=== PATIENT | female | born 1965 ===

== ENCOUNTER 2018-02-20 19:00 | Emergency (ER) | payer OTHER ==
[2018-02-20 19:22] VITALS: BP 114/66; PULSE 75; RESP 18; TEMP 98.2; O2SAT 97
--- NOTE | 2018-02-20 19:55 | ED PDOC ---
HPI: General Adult Time Seen by Provider: 02/20/18 19:53 Chief Complaint (Nursing): Bite Chief Complaint (Provider): bite History Per: Patient (52 y/o female h/o bronchitis here for evaluation of insect bite of right thigh noted after visit to [place]. Notes pruritis. Denies any fevers/chills.) Past Medical History Reviewed: Historical Data, Nursing Documentation, Vital Signs Vital Signs: Last Vital Signs Temp 98.2 F 02/20/18 19:18 Pulse 75 02/20/18 19:18 Resp 18 02/20/18 19:18 BP 114/66 02/20/18 19:18 Pulse Ox 97 02/20/18 19:58 - Medical History PMH: Anxiety, Asthma - Family History Family History: States: Unknown Family Hx - Home Medications Home Medications: Ambulatory Orders Medication Instructions Recorded Acetaminophen [Tylenol] 325 mg PO Q4 PRN #20 tab 07/28/14 Ibuprofen [Motrin Tab] 800 mg PO Q6H PRN #20 tab 02/21/15 traMADol [Ultram] 50 mg PO Q6H PRN #15 tab 02/21/15 Ibuprofen [Motrin] 600 mg PO Q6 PRN #20 tab 07/20/15 Doxycycline Monohydrate 100 mg PO BID #20 tablet 02/20/18 Hydrocortisone 1% Oint [Cortizone 0.5 gm TP BID #1 tube 02/20/18 1% Oint] Omeprazole Magnesium [Prilosec Otc] 20 mg PO DAILY #10 tablet. 02/20/18 - Allergies Allergies/Adverse Reactions: Allergies Allergy/AdvReac Type Severity Reaction Status Date / Time Penicillins Allergy RASH Verified 02/20/18 19:39 Review of Systems ROS Statement: Except As Marked, All Systems Reviewed And Found Negative Physical Exam - Reviewed Nursing Documentation Reviewed: Yes Vital Signs Reviewed: Yes - Physical Exam Appears: Positive for: Well, Non-toxic, No Acute Distress Head Exam: Positive for: ATRAUMATIC, NORMAL INSPECTION, NORMOCEPHALIC Skin: Positive for: Normal Color, Warm, Rash (8 cm region in diameter right lateral thigh proximal with ecchymosis 2.5 cm central and surrounding slightly flushed) Eye Exam: Positive for: EOMI, Normal appearance, PERRL ENT: Positive for: Normal ENT Inspection Neck: Positive for: Normal, Painless ROM Cardiovascular/Chest: Positive for: Regular Rate, Rhythm Respiratory: Positive for: CNT, Normal Breath Sounds Gastrointestinal/Abdominal: Positive for: Normal Exam, Soft Back: Positive for: Normal Inspection Extremity: Positive for: Normal ROM Neurologic/Psych: Positive for: Alert, Oriented - ECG O2 Sat by Pulse Oximetry: 97 - Progress ED Course And Treament: D/W DR. FISH. RASH APPEARS SLIGHTLY LIKE ERYTHEMA MIGRANS, WILL TREAT FOR LYME'S DISEASE . D/W PATIENT WHO WILL F/U WITH PMD FOR FURTHER EVALUATION. Disposition - Clinical Impression Clinical Impression: Insect bite - wound, Erythema migrans (Lyme disease) - Patient ED Disposition Is Patient to be Admitted: No - Disposition Disposition: Routine/Home Disposition Time: 19:55 Condition: FAIR Prescriptions: Doxycycline Monohydrate 100 mg PO BID #20 tablet Hydrocortisone 1% Oint [Cortizone 1% Oint] 0.5 gm TP BID #1 tube Omeprazole Magnesium [Prilosec Otc] 20 mg PO DAILY #10 tablet. Instructions: Lyme Disease (DC)
== END 2018-02-20 20:50 | disposition home or self-care (01) ==
LOC: H.ER 19:00
DX: S70.361A Insect bite (nonvenomous), right thigh, initial encounter (principal); W57.XXXA Bitten or stung by nonvenomous insect and other nonvenomous arthropods, initial encounter; Y92.89 Other specified places as the place of occurrence of the external cause; Z88.0 Allergy status to penicillin

== ENCOUNTER 2018-03-07 20:20 | Emergency (ER) | payer OTHER ==
[2018-03-07 21:19] VITALS: BP 105/73; PULSE 72; RESP 16; TEMP 98.3; O2SAT 96
--- NOTE | 2018-03-07 23:54 | ED PDOC ---
Upper Extremity Pain/Injury Time Seen by Provider: 03/07/18 22:22 Chief Complaint (Nursing): Finger,Hand,&Wrist Chief Complaint (Provider): Lef thumb pain x 3 months History Per: Patient History/Exam Limitations: no limitations Onset/Duration Of Symptoms: Days Current Symptoms Are (Timing): Still Present Quality: Dull Severity: Mild Additional Complaint(s): 52 yo female presents for evaluation of mild dull left thumb pain x 3 months. Pt states that sometimes when she bends her thumb it will get stuck. Pt states she also feels like her thumb is swollen. No trauma that patient can recall. Pain localized to left thumb Past Medical History Reviewed: Historical Data, Nursing Documentation, Vital Signs Vital Signs: Last Vital Signs Temp 98.3 F 03/07/18 21:18 Pulse 72 03/07/18 21:18 Resp 16 03/07/18 21:18 BP 105/73 03/07/18 21:18 Pulse Ox 96 03/07/18 21:18 - Medical History PMH: Anxiety, Asthma - Surgical History Surgical History: No Surg Hx - Family History Family History: States: Unknown Family Hx - Living Arrangements Living Arrangements: With Family - Social History Current smoker - smoking cessation education provided: No - Home Medications Home Medications: Ambulatory Orders Medication Instructions Recorded Acetaminophen [Tylenol] 325 mg PO Q4 PRN #20 tab 07/28/14 Ibuprofen [Motrin Tab] 800 mg PO Q6H PRN #20 tab 02/21/15 traMADol [Ultram] 50 mg PO Q6H PRN #15 tab 02/21/15 Ibuprofen [Motrin] 600 mg PO Q6 PRN #20 tab 07/20/15 Doxycycline Monohydrate 100 mg PO BID #20 tablet 02/20/18 Hydrocortisone 1% Oint [Cortizone 0.5 gm TP BID #1 tube 02/20/18 1% Oint] Omeprazole Magnesium [Prilosec Otc] 20 mg PO DAILY #10 tablet. 02/20/18 - Allergies Allergies/Adverse Reactions: Allergies Allergy/AdvReac Type Severity Reaction Status Date / Time Penicillins Allergy RASH Verified 02/20/18 19:39 Review of Systems ROS Statement: Except As Marked, All Systems Reviewed And Found Negative Constitutional: Negative for: Fever, Chills Skin: Positive for: Other Physical Exam - Reviewed Nursing Documentation Reviewed: Yes Vital Signs Reviewed: Yes - Physical Exam Appears: Positive for: Well, Non-toxic, No Acute Distress Head Exam: Positive for: ATRAUMATIC, NORMAL INSPECTION, NORMOCEPHALIC Skin: Positive for: Normal Color (No erythema, no edema, no ecchymosis of the left thumb), Warm Eye Exam: Positive for: Normal appearance ENT: Positive for: Normal ENT Inspection Neck: Positive for: Normal Respiratory: Negative for: Accessory Muscle Use, Respiratory Distress Pulses-Radial (L): 2+ Back: Positive for: Normal Inspection Extremity: Positive for: Normal ROM, Swelling (Mild edema of the left thumb, no bony deformity ). Negative for: Deformity Neurologic/Psych: Positive for: Alert - ECG O2 Sat by Pulse Oximetry: 96 Medical Decision Making Medical Decision Making: no acute fracture or dislocation in thumb Disposition - Clinical Impression Clinical Impression: Finger pain - Patient ED Disposition Is Patient to be Admitted: No Counseled Patient/Family Regarding: Diagnosis, Need For Followup - Disposition Referrals: Emir Browne MD [Medical Doctor] - Disposition: Routine/Home Disposition Time: 23:56 Condition: STABLE Additional Instructions: Please follow-up with hand specialist. Instructions: Muscle and Bone Pain (DC)
--- NOTE | 2018-03-08 09:54 | RAD ---
Date of service: 03/07/2018 PROCEDURE: Left Thumb radiographs. HISTORY: Pain COMPARISON: 07/19/2015. TECHNIQUE: AP radiograph of the left hand, as well as spot oblique and lateral images of thumb were obtained. FINDINGS: LEFT THUMB: Normal left thumb, without fracture or focal lesion. Remainder of the left hand (as seen on the AP view) grossly unremarkable. JOINTS: Normal. SOFT TISSUES: Normal. OTHER FINDINGS: None. IMPRESSION: No acute fracture or dislocation.
== END 2018-03-08 00:32 | disposition home or self-care (01) ==
LOC: H.ER 20:20
DX: M79.645 Pain in left finger(s) (principal); F41.9 Anxiety disorder, unspecified; Z88.0 Allergy status to penicillin